=== PATIENT | female | born 1950 | race Caucasian/White ===

== ENCOUNTER 2018-06-11 09:06 | Outpatient (CLI) | payer MEDICARE, OTHER | END 2018-06-11 23:59 | disposition home or self-care (01) | LOC: RAD 09:06 | PROVIDERS: ATTEND Family Medicine | DX: R05 Cough (principal); M47.894 Other spondylosis, thoracic region; M19.012 Primary osteoarthritis, left shoulder; M19.011 Primary osteoarthritis, right shoulder | CPT/HCPCS: 71046 ==